=== PATIENT | male | born 1985 | race African-American/Black ===

== ENCOUNTER 2017-03-18 21:31 | Emergency (ER) | payer OTHER ==
[~2017-03-18 21:31] MED LIST: *DENIES; ASACOL PO; COLAZAL 750 MG750 MG PO; DENIES HOME MEDS; FLAG500TAB PO; IRON325 MG PO; LEVSINTAB PO; LIALDA1.2 GM PO; NEXIUM20 M1 PO; NEXIUM40 PO; P1 PO; P10 PO; P20 PO; PCET PO; PEPTO-BISM524 MG/30 PO; PEPTO-BISMOL262 MG PO; PROTONIX PO
[2017-03-18 21:53] LABS: INFLUENZA A SCREEN NEGATIVE (NEGATIVE); INFLUENZA B SCREEN NEGATIVE (NEGATIVE)
[2017-03-19 00:01] LABS: BASOPHILS 0.5 %; BASOPHILS ABSOLUTE 0.05 10/3/uL (0.0-0.16); EOSINOPHILS 6.5 %; EOSINOPHILS ABSOLUTE 0.67 10/3/uL (0.0-0.53); ER CBC TAT 0 Hrs 03 Mins; IMMATURE GRANULOCYTES 0.2 %; IMMATURE GRANULOCYTES ABSOLUTE 0.02 10/3/uL (0.0-0.11); LYMPHOCYTES 21.7 %; LYMPHOCYTES ABSOLUTE 2.22 10/3/uL (0.67-4.30); MEAN PLATELET VOLUME 8.3 fL (9.2-13.0); MONOCYTES 9.4 %; MONOCYTES ABSOLUTE 0.96 10/3/uL (0.21-1.20); NEUTROPHILS 61.7 %; NEUTROPHILS ABSOLUTE 6.32 10/3/uL (2.02-8.40); RED CELL COUNT 4.88 10/6/uL (4.7-6.1); WHITE BLOOD CELLS 10.2 10/3/uL (4.5-10.5)
[2017-03-19 00:02] LABS: HEMATOCRIT 31.7 % (40.0-51.0); HEMOGLOBIN 9.1 g/dL (13.6-17.8); MANUAL DIFF NO %; MEAN CORPUS HGB CONC 28.7 g/dL (32.0-36.0); MEAN CORPUSCULAR HEMOGLOB 18.6 pg (26.0-34.0); PLATELET COUNT 307 10/3/uL (150-400)
[2017-03-19 00:13] LABS: CALCIUM, SERUM 9.1 MG/DL (8.5-10.4); CHLORIDE, SERUM 109 MMOL/L (96-112); CO2 (CARBON DIOXIDE) 28 MMOL/L (24-34); CREATININE 0.84 MG/DL (0.70-1.30); GFR AFRICAN AMERICAN 137 ML/MIN (>=60); GFR NON AFRICAN AMERICAN 118 ML/MIN (>=60); GLUCOSE, SERUM 79 MG/DL (60-99); POTASSIUM, SERUM 3.7 MMOL/L (3.5-5.3); SODIUM, SERUM 140 MMOL/L (135-148)
[2017-03-19 00:14] LABS: BUN (BLOOD UREA NITROGEN) 11 MG/DL (6-23)
[2017-03-19 00:19] LABS: ANISOCYTOSIS 1+ (5-10/OIF) (0-5/OIF); ELLIPTOCYTES 1+ (3-10/OIF) (0-2/OIF); HYPOCHROMIA 3+ (>30/OIF) (0-2/OIF); MICROCYTES 4+ (>50/OIF) (0-5/OIF); PLATELET ESTIMATE ADQ (ADEQUATE)
== END 2017-03-19 01:48 | disposition home or self-care (01) ==
LOC: ER 21:31
PROVIDERS: Emergency Medicine; Nurse Practitioner Acute Care
DX: J06.9 Acute upper respiratory infection, unspecified (principal); D64.9 Anemia, unspecified; Z79.52 Long term (current) use of systemic steroids; Z79.891 Long term (current) use of opiate analgesic; Z79.899 Other long term (current) drug therapy
CPT/HCPCS: 71020; 80048; 85025; 87804; 94640; 99283; A9270-GY